=== PATIENT | male | born 1960 | race African-American/Black ===

== ENCOUNTER 2020-01-08 20:05 | Emergency (ER) | payer MEDICAID ==
[~2020-01-08] VITALS: Ht 177.8 cm; Wt 68.0 kg
[2020-01-08] MEDS ORDERED: HYDROCODONE/ACETAMINOPHEN 5/325MG TABLET PO ONE (21:15)
[2020-01-08 21:27] VITALS: BP 143/88
== END 2020-01-08 21:35 | disposition home or self-care (01) ==
LOC: ER 20:05
DX: M79.605 Pain in left leg (principal); G89.11 Acute pain due to trauma
CPT/HCPCS: 99283

== ENCOUNTER 2021-02-09 15:31 | Emergency (ER) | payer MEDICAID ==
[~2021-02-09] VITALS: Ht 177.8 cm; Wt 85.0 kg
[2021-02-09 15:33] VITALS: BP 148/99
[2021-02-09] MEDS ORDERED: AMOX-424 MT (16:08)
[2021-02-09] MEDS ORDERED: GUAI600T26 MT (16:08)
[2021-02-09] MEDS ORDERED: HYDR-4001 MT (16:08)
[2021-02-09] MEDS ORDERED: OMEP20CA14 MT (16:08)
[2021-02-09] MEDS ORDERED: HYDROCODONE/ACETAMINOPHEN 5/325MG TABLET PO ONE (16:15)
[2021-02-09] MEDS ORDERED: AMOXICILLIN/POTASSIUM CLAVULANATE 875/125MG TAB PO ONE (16:15)
[2021-02-09] MEDS ORDERED: OMEPRAZOLE 20MG CAPSULE EXTENDED RELEASE PO ONE (16:15)
== END 2021-02-09 16:31 | disposition home or self-care (01) ==
LOC: ER 15:31
DX: K05.6 Periodontal disease, unspecified (principal); K02.9 Dental caries, unspecified; F41.9 Anxiety disorder, unspecified; F32.9 Major depressive disorder, single episode, unspecified; K21.9 Gastro-esophageal reflux disease without esophagitis; E78.00 Pure hypercholesterolemia, unspecified; I10 Essential (primary) hypertension; Z79.899 Other long term (current) drug therapy
CPT/HCPCS: 99284

== ENCOUNTER 2021-03-02 04:28 | Inpatient (IN) | payer MEDICAID ==
[~2021-03-02] VITALS: Ht 180.3 cm; Wt 104.3 kg
[~2021-03-02 04:28] MED LIST: AMOX-424 MT; GUAI600T26 MT; HYDR-4001 MT; OMEP20CA14 MT
[2021-03-02] MEDS ORDERED: IBUPROFEN 600MG TABLET PO ONE (05:45)
[2021-03-02 06:42] LABS: CHLORIDE 109 mEq/L (98-107)
[2021-03-02 06:46] LABS: EOSINOPHILS % 1.1 % (0.0-5.0); HEMATOCRIT. 39.8 % (42.0-52.0); HEMOGLOBIN. 13.5 g/dL (14.0-18.0); LYMPHOCYTES % 21.5 % (20.0-50.0); MEAN CORPUSCULAR HEMOGLOBIN 30.2 pg (28.0-32.0); MEAN CORPUSCULAR VOLUME 89.3 fL (80.0-94.0); MEAN PLATELET VOLUME 8.5 fl (7.4-10.4); MONOCYTES % 7.6 % (2.0-8.0); NEUTROPHILS % 68.8 % (40.0-76.0); PLATELET 335 x1000/uL (130-400); RED BLOOD CELL COUNT 4.46 mill/uL (4.7-6.1); RED CELL DISTRIBUTION WIDTH 12.3 % (11.6-14.6)
[2021-03-02] MEDS ORDERED: CEFTRIAXONE 1 G PREMIX 50 ML IV ONE (14:00)
[2021-03-02] MEDS ORDERED: AZITHROMYCIN 500MG/250ML 250 ML IV ONE (14:00)
[2021-03-02] MEDS ORDERED: IPRATROPIUM/ALBUTEROL 0.5-3(2.5)MG/3ML NEB NEB PRN (15:00)
[2021-03-02] MEDS ORDERED: MAGNESIUM/ALUMINUM HYDROXIDE/SIMETHICONE 30ML UDC PO PRN (15:00)
[2021-03-02] MEDS ORDERED: NITROGLYCERIN 0.4MG TABLET SL SL PRN (15:00)
[2021-03-02] MEDS ORDERED: ZOLPIDEM TARTRATE 5MG TABLET PO PRN (15:00)
[2021-03-02] MEDS ORDERED: ONDANSETRON HCL 4MG/2ML INJ IV PRN (15:00)
[2021-03-02] MEDS ORDERED: CLONIDINE 0.1MG TABLET PO PRN (15:00)
[2021-03-02] MEDS ORDERED: GUAIFENESIN 200MG/10ML SUGAR FREE UDC PO PRN (15:00)
[2021-03-02] MEDS ORDERED: DOCUSATE SODIUM 100MG CAPSULE PO PRN (15:00)
[2021-03-02] MEDS ORDERED: ACETAMINOPHEN 325MG TABLET PO PRN ×2 (15:00)
[2021-03-02 15:30] LABS: ETHANOL BLOOD < 10 mg/dL
[2021-03-02 15:31] LABS: TOTAL IRON BINDING CAPACITY 272 ug/dL (250-450)
[2021-03-02 15:41] LABS: FOLIC ACID (FOLATE) SERUM 8.7 ng/mL (>5.38)
[2021-03-02] MEDS: KETOROLAC 15MG/ML VIAL IV PRN (17:47)
[2021-03-02] MEDS: DILTIAZEM HCL 60MG TABLET PO SCH (18:00)
[2021-03-02] MEDS: ALBUTEROL 6.7GM HFA INHALER ORI PRN (21:00)
[2021-03-02] MEDS ORDERED: ENOXAPARIN 40MG/0.4ML SYR SUBCUT SCH (21:00)
[2021-03-02 22:00] VITALS: BP 136/99
[2021-03-02] MEDS: FUROSEMIDE 40MG/4ML VIAL IVP SCH (22:24)
[2021-03-02] MEDS: SPIRONOLACTONE 25MG TABLET PO SCH (22:24)
[2021-03-02] MEDS: FAMOTIDINE 20MG TABLET PO SCH (22:24)
[2021-03-02 22:25] VITALS: BP 136/99
[2021-03-02] MEDS ORDERED: LISI10TA26 PO (23:19)
[2021-03-02 23:23] LABS: *AMPHETAMINES SCREEN URINE NEGATIVE (NEGATIVE); *BARBITURATES SCREEN URINE NEGATIVE (NEGATIVE); *COCAINE SCREEN URINE NEGATIVE (NEGATIVE); CANNABINOID URINE SCREEN NEGATIVE (NEGATIVE); METHADONE URINE SCREEN NEGATIVE (NEGATIVE); OPIATES URINE SCREEN NEGATIVE (NEGATIVE); PHENCYCLIDINE URINE SCREEN NEGATIVE (NEGATIVE)
[2021-03-02 23:24] LABS: *BENZODIAZEPINES SCREEN URINE NEGATIVE (NEGATIVE)
[2021-03-02 23:32] LABS: CREATINE KINASE MB FRACTION 1.3 ng/mL (0.5-3.6)
[2021-03-03] VITALS: BP 121/91
[2021-03-03] MEDS: DILTIAZEM HCL 60MG TABLET PO SCH ×5 (01:59→23:35)
[2021-03-03] MEDS: KETOROLAC 15MG/ML VIAL IV PRN ×4 (02:09→23:00)
[2021-03-03 04:00] VITALS: BP 129/68
[2021-03-03 07:38] LABS: CHLORIDE 108 mEq/L (98-107)
[2021-03-03 07:40] LABS: BASOPHILS % 0.7 % (0.0-2.0); EOSINOPHILS % 1.1 % (0.0-5.0); HEMATOCRIT. 38.3 % (42.0-52.0); HEMOGLOBIN. 13.1 g/dL (14.0-18.0); MEAN CORPUSCULAR HEMOGLOBIN 30.8 pg (28.0-32.0); MEAN CORPUSCULAR VOLUME 89.9 fL (80.0-94.0); MEAN PLATELET VOLUME 9.2 fl (7.4-10.4); MONOCYTES % 7.5 % (2.0-8.0); NEUTROPHILS % 69.7 % (40.0-76.0); PLATELET 348 x1000/uL (130-400); RED BLOOD CELL COUNT 4.26 mill/uL (4.7-6.1); RED CELL DISTRIBUTION WIDTH 12.2 % (11.6-14.6)
[2021-03-03 07:45] LABS: CREATINE KINASE 98 IU/L (39-308)
[2021-03-03 07:49] LABS: CREATINE KINASE MB FRACTION 1.4 ng/mL (0.5-3.6)
[2021-03-03 08:00] VITALS: BP 133/100
[2021-03-03] MEDS: FUROSEMIDE 40MG/4ML VIAL IVP SCH ×2 (08:33→20:24)
[2021-03-03] MEDS: SPIRONOLACTONE 25MG TABLET PO SCH ×2 (08:33→20:25)
[2021-03-03] MEDS: ASPIRIN 325MG EC TABLET PO SCH (08:33)
[2021-03-03] MEDS: FAMOTIDINE 20MG TABLET PO SCH ×2 (08:33→20:25)
[2021-03-03 12:00] VITALS: BP 128/96
[2021-03-03 16:00] VITALS: BP 125/94
[2021-03-03 20:00] VITALS: BP 116/83
[2021-03-03] MEDS: ENOXAPARIN 30MG/0.3ML SYR SUBCUT SCH (20:26)
[2021-03-04] VITALS: BP 128/87
[2021-03-04 04:00] VITALS: BP 120/88
[2021-03-04] MEDS: DILTIAZEM HCL 60MG TABLET PO SCH ×3 (05:25→18:21)
[2021-03-04] MEDS: KETOROLAC 15MG/ML VIAL IV PRN ×3 (05:53→18:22)
[2021-03-04 08:00] VITALS: BP 126/79
[2021-03-04] MEDS: FUROSEMIDE 40MG/4ML VIAL IVP SCH ×2 (08:43→21:09)
[2021-03-04] MEDS: ENOXAPARIN 30MG/0.3ML SYR SUBCUT SCH ×2 (08:44→21:09)
[2021-03-04] MEDS: FAMOTIDINE 20MG TABLET PO SCH ×2 (08:44→21:08)
[2021-03-04] MEDS: ASPIRIN 325MG EC TABLET PO SCH (08:44)
[2021-03-04] MEDS: SPIRONOLACTONE 25MG TABLET PO SCH ×2 (08:47→21:09)
[2021-03-04 12:00] VITALS: BP 128/77
[2021-03-04 16:00] VITALS: BP 122/86
[2021-03-04] MEDS: ACETAMINOPHEN 325MG TABLET PO PRN (16:42)
[2021-03-04 20:00] VITALS: BP 161/74
[2021-03-05] VITALS: BP 123/83
[2021-03-05] MEDS: KETOROLAC 15MG/ML VIAL IV PRN ×4 (00:07→23:29)
[2021-03-05] MEDS: DILTIAZEM HCL 60MG TABLET PO SCH ×5 (00:07→23:30)
[2021-03-05 04:00] VITALS: BP 125/82
[2021-03-05 08:00] VITALS: BP 127/45
[2021-03-05] MEDS: SPIRONOLACTONE 25MG TABLET PO SCH ×2 (08:42→20:17)
[2021-03-05] MEDS: FUROSEMIDE 40MG/4ML VIAL IVP SCH ×2 (08:42→20:17)
[2021-03-05] MEDS: ASPIRIN 325MG EC TABLET PO SCH (08:42)
[2021-03-05] MEDS: FAMOTIDINE 20MG TABLET PO SCH ×2 (08:42→20:17)
[2021-03-05] MEDS: ENOXAPARIN 30MG/0.3ML SYR SUBCUT SCH ×2 (08:44→20:17)
[2021-03-05 12:01] VITALS: BP 118/93
[2021-03-05 16:00] VITALS: BP 111/76
[2021-03-05 20:00] VITALS: BP 130/80
[2021-03-05] MEDS: ACETAMINOPHEN 325MG TABLET PO PRN (20:17)
[2021-03-06] VITALS: BP 129/80
[2021-03-06 04:00] VITALS: BP 116/77
[2021-03-06] MEDS: DILTIAZEM HCL 60MG TABLET PO SCH (05:23)
[2021-03-06] MEDS: KETOROLAC 15MG/ML VIAL IV PRN (05:23)
[2021-03-06 08:00] VITALS: BP 126/88
[2021-03-06] MEDS: ENOXAPARIN 30MG/0.3ML SYR SUBCUT SCH (09:00)
[2021-03-06] MEDS: FUROSEMIDE 40MG/4ML VIAL IVP SCH (09:00)
[2021-03-06] MEDS: FAMOTIDINE 20MG TABLET PO SCH (09:38)
[2021-03-06] MEDS: SPIRONOLACTONE 25MG TABLET PO SCH (09:38)
[2021-03-06] MEDS: ASPIRIN 325MG EC TABLET PO SCH (09:38)
[2021-03-06 09:42] VITALS: BP 126/88
== END 2021-03-06 10:15 | disposition home or self-care (01) | DRG 194 ==
LOC: ER 05:03 → 8WST 11:04 → ENRESERV 20:30
PROVIDERS: ADMIT Internal Medicine; ATTEND Internal Medicine
DX: I11.0 Hypertensive heart disease with heart failure (principal); E44.0 Moderate protein-calorie malnutrition; D63.8 Anemia in other chronic diseases classified elsewhere; I47.1 Supraventricular tachycardia; Z20.822 Contact with and (suspected) exposure to COVID-19; E78.00 Pure hypercholesterolemia, unspecified; K21.9 Gastro-esophageal reflux disease without esophagitis; F41.9 Anxiety disorder, unspecified; I50.40 Unspecified combined systolic (congestive) and diastolic (congestive) heart failure; Z68.32 Body mass index [BMI] 32.0-32.9, adult; Z79.899 Other long term (current) drug therapy
CPT/HCPCS: 36415; 71045; 80053; 80305; 80320; 82550; 82553; 82607; 82746; 83540; 83550; 83735; 83880; 84100; 84145; 84443; 84484; 85025; 87426; 93005; 93306; 93970; 94640; 99285; J0456; J0696; J1650; J1885; J1940; G0480

== ENCOUNTER 2021-12-08 03:01 | Emergency (ER) | payer MEDICAID ==
[~2021-12-08] VITALS: Ht 180.3 cm; Wt 83.0 kg
[~2021-12-08 03:01] MED LIST changes: +AMOX-494 MT; +CARV3.1242 MT; +FURO-151 MT; +LISI10TA26 PO; +TOPUD MT
[2021-12-08] MEDS ORDERED: IPRATROPIUM BROMIDE (0.02%) 0.5MG/2.5ML NEB HHN STA (03:34)
[2021-12-08] MEDS ORDERED: ALBUTEROL (0.083%) 2.5MG/3ML NEB HHN STA (03:34)
[2021-12-08] MEDS ORDERED: BENZONATATE 200MG CAPSULE PO ONE (03:45)
[2021-12-08 04:04] LABS: BASOPHILS % 0.3 % (0.0-2.0); EOSINOPHILS % 2.2 % (0.0-5.0); HEMATOCRIT. 38.9 % (42.0-52.0); HEMOGLOBIN. 13.1 g/dL (14.0-18.0); LYMPHOCYTES % 27.3 % (20.0-50.0); MEAN CORPUSCULAR HEMOGLOBIN 30.9 pg (28.0-32.0); MEAN CORPUSCULAR VOLUME 92.3 fL (80.0-94.0); MEAN PLATELET VOLUME 9.3 fl (7.4-10.4); MONOCYTES % 7.6 % (2.0-8.0); NEUTROPHILS % 62.6 % (40.0-76.0); PLATELET 143 x1000/uL (130-400); RED BLOOD CELL COUNT 4.22 mill/uL (4.7-6.1); RED CELL DISTRIBUTION WIDTH 13.5 % (11.6-14.6)
[2021-12-08 05:15] LABS: CHLORIDE 106 mEq/L (98-107)
[2021-12-08] MEDS ORDERED: ENALAPRIL 2.5MG/2ML VIAL 2ML IV ONE (06:00)
[2021-12-08] MEDS ORDERED: FUROSEMIDE 40MG/4ML VIAL IVP ONE (06:00)
[2021-12-08 07:42] VITALS: BP 134/93
[2021-12-08] MEDS ORDERED: LISI10TA26 PO (07:54)
[2021-12-08] MEDS ORDERED: FURO40TA5 PO (07:54)
[2021-12-08] MEDS ORDERED: CARV3.1242 PO (07:54)
== END 2021-12-08 08:07 | disposition home or self-care (01) ==
LOC: ER 03:10 → EDBEDREQTM 06:52 → EDBEDREQ 06:52 → CANBEDREQ 08:06 → ER 08:07
DX: I11.0 Hypertensive heart disease with heart failure (principal); I50.9 Heart failure, unspecified; R94.31 Abnormal electrocardiogram [ECG] [EKG]; Z20.822 Contact with and (suspected) exposure to COVID-19
CPT/HCPCS: 36415; 71045; 80053; 83605; 83880; 84484; 85025; 87426; 93005; 94640; 96374; 96375; 99285; C9803; J1940; J3490; Z7610

== ENCOUNTER 2024-02-17 01:53 | Emergency (ER) | payer MEDICAID ==
[~2024-02-17] VITALS: Ht 180.3 cm; Wt 99.0 kg
[~2024-02-17 01:53] MED LIST changes: +CARV3.1242 PO; +FURO40TA5 PO
[2024-02-17 02:03] VITALS: BP 139/94; PULSE 90; RESP 18; TEMP 98.5; O2SAT 97
[2024-02-17 03:29] LABS: CHLORIDE 108 mEq/L (98-107); POTASSIUM 3.2 mEq/L (3.5-5.1); SODIUM 142 mEq/L (136-145)
[2024-02-17 03:30] LABS: CALCIUM 8.8 mg/dL (8.7-10.4); CARBON DIOXIDE 27 mEq/L (21-32)
[2024-02-17] MEDS: ASPIRIN 81MG TABLET PO ONE (03:34)
[2024-02-17] MEDS: FUROSEMIDE 40MG/4ML VIAL IV ONE (03:34)
[2024-02-17 03:35] LABS: BASOPHILS % 1.3 % (0.0-2.0); CREATININE 1.2 mg/dL (0.6-1.3); EOSINOPHILS % 3.1 % (0.0-5.0); GLUCOSE 110 mg/dL (70-105); HEMATOCRIT. 36.6 % (42.0-52.0); HEMOGLOBIN. 12.2 g/dL (14.0-18.0); LYMPHOCYTES % 26.8 % (20.0-50.0); MEAN CORPUSCULAR HEMOGLOBIN 32.2 pg (28.0-32.0); MEAN CORPUSCULAR HGB CONC 33.2 g/dL (31.0-37.0); MEAN PLATELET VOLUME 9.6 fl (7.4-10.4); MONOCYTES % 12.1 % (2.0-8.0); NEUTROPHILS % 56.7 % (40.0-76.0); PLATELET 100 x1000/uL (130-400); RED BLOOD CELL COUNT 3.78 mill/uL (4.7-6.1); RED CELL DISTRIBUTION WIDTH 13.3 % (11.6-14.6); UREA NITROGEN BLOOD 11 mg/dL (9-23); WHITE BLOOD COUNT 6.1 x1000/uL (4.5-11.0)
[2024-02-17] MEDS: NITROGLYCERIN 0.4MG TABLET SL SL PRN (03:35)
[2024-02-17 03:36] LABS: TROPONIN I HIGH SENSITIVITY 20 ng/L (3.0-53)
[2024-02-17] MEDS: POTASSIUM CHLORIDE 20MEQ/PACKET PO ONE (04:15)
[2024-02-17 04:40] LABS: PARTIAL THROMBOPLASTIN TIME 25.2 sec (23.4-31.0)
== END 2024-02-17 04:42 | disposition left against medical advice (07) ==
LOC: ER 03:04 → EDBEDREQ 04:08 → EDBEDREQTM 04:08 → ER 04:42
DX: I11.0 Hypertensive heart disease with heart failure (principal); I50.9 Heart failure, unspecified; E87.6 Hypokalemia; Z79.899 Other long term (current) drug therapy; Z76.0 Encounter for issue of repeat prescription
CPT/HCPCS: 80048; 83880; 85025; 85610; 85730; 84484; 36415; 71045; 93005; 96374; 99285; Z7610 ×2; J1940

== ENCOUNTER 2024-03-07 03:55 | Emergency (ER) | payer MEDICAID ==
[~2024-03-07] VITALS: Ht 180.3 cm; Wt 105.0 kg
[2024-03-07 03:57] VITALS: O2SAT 100
[2024-03-07 06:28] LABS: CHLORIDE 105 mEq/L (98-107); POTASSIUM 3.2 mEq/L (3.5-5.1); SODIUM 143 mEq/L (136-145)
[2024-03-07 06:29] LABS: CALCIUM 8.4 mg/dL (8.7-10.4); CARBON DIOXIDE 29 mEq/L (21-32)
[2024-03-07 06:34] LABS: CREATININE 1.3 mg/dL (0.6-1.3); GLUCOSE 90 mg/dL (70-105); UREA NITROGEN BLOOD 17 mg/dL (9-23)
[2024-03-07 06:35] LABS: TROPONIN I HIGH SENSITIVITY 20 ng/L (3.0-53)
[2024-03-07 06:36] LABS: BASOPHILS % 0.5 % (0.0-2.0); HEMATOCRIT. 36.2 % (42.0-52.0); LYMPHOCYTES % 11.1 % (20.0-50.0); MEAN CORPUSCULAR HEMOGLOBIN 31.6 pg (28.0-32.0); MEAN CORPUSCULAR HGB CONC 33.3 g/dL (31.0-37.0); MEAN CORPUSCULAR VOLUME 94.9 fL (80.0-94.0); MEAN PLATELET VOLUME 10.6 fl (7.4-10.4); MONOCYTES % 11.3 % (2.0-8.0); NEUTROPHILS % 77.1 % (40.0-76.0); PLATELET 82 x1000/uL (130-400); RED BLOOD CELL COUNT 3.82 mill/uL (4.7-6.1); RED CELL DISTRIBUTION WIDTH 13.1 % (11.6-14.6); WHITE BLOOD COUNT 5.3 x1000/uL (4.5-11.0)
[2024-03-07 06:49] LABS: ETHANOL BLOOD < 10 mg/dL (<10)
[2024-03-07 07:23] LABS: CLARITY URINE CLEAR (CLEAR); COLOR URINE YELLOW (YELLOW); GLUCOSE URINE NEGATIVE (NEGATIVE); KETONES URINE TRACE (NEGATIVE); LEUKOCYTE ESTERASE URINE NEGATIVE (NEGATIVE); NITRITE URINE NEGATIVE (NEGATIVE); OCCULT BLOOD URINE NEGATIVE (NEGATIVE); PH URINE 6.5 (4.5-8.0); PROTEIN URINE 1+ (NEGATIVE); SPECIFIC GRAVITY URINE 1.022 (1.005-1.030)
[2024-03-07 07:24] LABS: PARTIAL THROMBOPLASTIN TIME 26.3 sec (23.4-31.0); PROTHROMBIN TIME 11.4 sec (9.6-11.0)
[2024-03-07 07:38] LABS: BACTERIA URINE RARE; RBC URINE 0-2 /hpf (0-2); SQUAMOUS EPITHELIAL CELL URINE NONE SEEN /lpf (RARE/1+); WBC URINE 0-2 /hpf (0-2); YEAST URINE NONE SEEN
[2024-03-07] MEDS: FUROSEMIDE 40MG/4ML VIAL IVP NR (08:03)
[2024-03-07 08:04] LABS: *AMPHETAMINES SCREEN URINE NEGATIVE (NEGATIVE); *BARBITURATES SCREEN URINE NEGATIVE (NEGATIVE); *BENZODIAZEPINES SCREEN URINE NEGATIVE (NEGATIVE); *COCAINE SCREEN URINE PRESUMPTIVE POSITIVE (NEGATIVE); METHADONE URINE SCREEN NEGATIVE (NEGATIVE); OPIATES URINE SCREEN NEGATIVE (NEGATIVE); PHENCYCLIDINE URINE SCREEN NEGATIVE (NEGATIVE)
[2024-03-07] MEDS: PANTOPRAZOLE SODIUM 40 MG/VIAL IV NR (08:04)
[2024-03-07] MEDS: POTASSIUM CHLORIDE 20MEQ/PACKET PO NR (08:04)
[2024-03-07 08:05] LABS: CANNABINOID URINE SCREEN NEGATIVE (NEGATIVE); ECSTASY MDMA SCREEN URINE NEGATIVE (NEGATIVE)
[2024-03-07 08:20] VITALS: TEMP 36.61404; O2SAT 96
[2024-03-07 08:21] LABS: ALANINE AMINOTRANSFERASE 75 IU/L (10-49); ALBUMIN 3.9 g/dL (3.2-4.8); ASPARTATE AMINOTRANSFERASE 108 IU/L (<34); BILIRUBIN DIRECT 0.2 mg/dL (<=3.0); BILIRUBIN TOTAL 0.5 mg/dL (0.1-1.0); PROTEIN TOTAL 6.6 g/dL (6.0-8.3)
[2024-03-07 16:21] VITALS: BP 112/75; PULSE 88; RESP 18; TEMP 97.9
== END 2024-03-07 17:00 | disposition admitted as inpatient to this hospital (09) ==
LOC: ER 03:55 → EDBEDREQ 13:37 → CANBEDREQ 16:39 → ER 17:00
DX: I11.0 Hypertensive heart disease with heart failure (principal); I50.9 Heart failure, unspecified; F14.10 Cocaine abuse, uncomplicated; K21.9 Gastro-esophageal reflux disease without esophagitis; F17.200 Nicotine dependence, unspecified, uncomplicated; F12.10 Cannabis abuse, uncomplicated; E87.6 Hypokalemia; Z79.899 Other long term (current) drug therapy
CPT/HCPCS: 80076; 80305; 80048; 81003; 80320; 83880; 83690; 85025; 85610; 85730; 84484; 36415; 71045; 93005; 96365; 96366; 96375; 99291; J1940; J2470; A4663; Z7610 ×3; A4606; G0480

== ENCOUNTER 2024-03-07 22:57 | Emergency (ER) | payer MEDICAID ==
[~2024-03-07] VITALS: Ht 182.9 cm; Wt 91.0 kg
[2024-03-07 08:20] VITALS: TEMP 36.61404
[2024-03-07 23:00] VITALS: BP 127/82; PULSE 90; RESP 20; TEMP 98.4; O2SAT 97
[2024-03-08 00:18] LABS: BASOPHILS % 0.4 % (0.0-2.0); EOSINOPHILS % 0.3 % (0.0-5.0); HEMATOCRIT. 36.1 % (42.0-52.0); LYMPHOCYTES % 23.7 % (20.0-50.0); MEAN CORPUSCULAR HEMOGLOBIN 31.5 pg (28.0-32.0); MEAN CORPUSCULAR HGB CONC 33.3 g/dL (31.0-37.0); MEAN CORPUSCULAR VOLUME 94.6 fL (80.0-94.0); MEAN PLATELET VOLUME 10.8 fl (7.4-10.4); MONOCYTES % 11.9 % (2.0-8.0); NEUTROPHILS % 63.7 % (40.0-76.0); PLATELET 89 x1000/uL (130-400); RED BLOOD CELL COUNT 3.82 mill/uL (4.7-6.1); RED CELL DISTRIBUTION WIDTH 13.1 % (11.6-14.6); WHITE BLOOD COUNT 4.2 x1000/uL (4.5-11.0)
[2024-03-08 00:26] LABS: CHLORIDE 103 mEq/L (98-107); POTASSIUM 3.3 mEq/L (3.5-5.1); SODIUM 139 mEq/L (136-145)
[2024-03-08 00:27] LABS: CALCIUM 8.2 mg/dL (8.7-10.4); CARBON DIOXIDE 31 mEq/L (21-32)
[2024-03-08 00:32] LABS: CREATININE 1.1 mg/dL (0.6-1.3); GLUCOSE 92 mg/dL (70-105); UREA NITROGEN BLOOD 14 mg/dL (9-23)
[2024-03-08 00:33] LABS: TROPONIN I HIGH SENSITIVITY 17 ng/L (3.0-53)
[2024-03-08] MEDS: POTASSIUM CHLORIDE 20MEQ TABLET SR PO NR (01:00)
[2024-03-08] MEDS: FUROSEMIDE 40MG TABLET PO NR (01:01)
[2024-03-08] MEDS: FUROSEMIDE 40MG TABLET PO ONE (01:01)
[2024-03-08] MEDS: FUROSEMIDE 20MG/2ML VIAL IVP ONE (03:33)
[2024-03-08] MEDS: ALPRAZOLAM 0.25 MG TABLET PO ONE (03:33)
[2024-03-08] MEDS: FUROSEMIDE 40MG/4ML VIAL IVP NR (03:33)
[2024-03-08] MEDS ORDERED: MAGNESIUM/ALUMINUM HYDROXIDE/SIMETHICONE 30ML UDC PO PRN (04:45)
[2024-03-08] MEDS ORDERED: GUAIFENESIN 200MG/10ML SUGAR FREE UDC PO PRN (04:45)
[2024-03-08] MEDS ORDERED: ONDANSETRON HCL 4MG/2ML INJ IV PRN (04:45)
[2024-03-08] MEDS ORDERED: IPRATROPIUM/ALBUTEROL 0.5-3(2.5)MG/3ML NEB HHN PRN (04:45)
[2024-03-08] MEDS ORDERED: CLONIDINE 0.1MG TABLET PO PRN (04:45)
[2024-03-08] MEDS ORDERED: DOCUSATE SODIUM 100MG CAPSULE PO PRN (04:45)
[2024-03-08] MEDS ORDERED: ACETAMINOPHEN 325MG TABLET PO PRN ×2 (04:45)
[2024-03-08] MEDS: POTASSIUM CHLORIDE 20MEQ/PACKET PO NR (05:39)
[2024-03-08] MEDS ORDERED: POTASSIUM CHLORIDE 20 MEQ in DEXT 5% WATER 90 ML IV ONE (07:30)
[2024-03-08] MEDS ORDERED: KCL 20MEQ/100ML PREMIX 100 ML IV NR (07:45)
[2024-03-08] MEDS ORDERED: PANTOPRAZOLE SODIUM 40 MG/VIAL IV SCH (09:00)
[2024-03-08] MEDS ORDERED: ENOXAPARIN 40MG/0.4ML SYR SUBCUT SCH (09:00)
== END 2024-03-08 07:56 | disposition left against medical advice (07) ==
LOC: ER 22:57
DX: I11.0 Hypertensive heart disease with heart failure (principal); I50.9 Heart failure, unspecified; Z91.148 Patient's other noncompliance with medication regimen for other reason; E87.6 Hypokalemia; D53.1 Other megaloblastic anemias, not elsewhere classified; F17.210 Nicotine dependence, cigarettes, uncomplicated; K21.9 Gastro-esophageal reflux disease without esophagitis; Z79.899 Other long term (current) drug therapy; Z98.890 Other specified postprocedural states
CPT/HCPCS: 80048; 83880; 85025; 84484; 36415; 71045; 93005; 99285; 96374; J1940 ×2; Z7610 ×2

== ENCOUNTER 2024-03-10 02:37 | Emergency (ER) | payer MEDICAID ==
[~2024-03-10] VITALS: Ht 172.7 cm; Wt 76.0 kg
[2024-03-10 03:02] VITALS: BP 158/90; PULSE 84; RESP 20; TEMP 98.1; O2SAT 98
[2024-03-10] MEDS ORDERED: FUROSEMIDE 40MG/4ML VIAL IV ONE (03:15)
[2024-03-10 04:49] LABS: BASOPHILS % 0.8 % (0.0-2.0); EOSINOPHILS % 3.7 % (0.0-5.0); HEMOGLOBIN. 11.4 g/dL (14.0-18.0); LYMPHOCYTES % 20.1 % (20.0-50.0); MEAN CORPUSCULAR HEMOGLOBIN 31.5 pg (28.0-32.0); MEAN CORPUSCULAR HGB CONC 32.4 g/dL (31.0-37.0); MEAN CORPUSCULAR VOLUME 97.3 fL (80.0-94.0); MONOCYTES % 8.9 % (2.0-8.0); NEUTROPHILS % 66.5 % (40.0-76.0); RED CELL DISTRIBUTION WIDTH 13.5 % (11.6-14.6); WHITE BLOOD COUNT 6.4 x1000/uL (4.5-11.0)
[2024-03-10 04:56] LABS: CHLORIDE 109 mEq/L (98-107); POTASSIUM 4.3 mEq/L (3.5-5.1); SODIUM 142 mEq/L (136-145)
[2024-03-10 04:57] LABS: CARBON DIOXIDE 24 mEq/L (21-32)
[2024-03-10 04:58] LABS: CALCIUM 8.6 mg/dL (8.7-10.4)
[2024-03-10 05:02] LABS: CREATININE 1.2 mg/dL (0.6-1.3)
[2024-03-10 05:03] LABS: GLUCOSE 103 mg/dL (70-105); UREA NITROGEN BLOOD 18 mg/dL (9-23)
[2024-03-10 05:05] LABS: TROPONIN I HIGH SENSITIVITY 11 ng/L (3.0-53)
[2024-03-10] MEDS: FUROSEMIDE 40MG TABLET PO ONE (05:20)
[2024-03-10 05:27] LABS: DIFFERENTIAL COMMENT 1
[2024-03-10 05:30] LABS: PARTIAL THROMBOPLASTIN TIME 21.4 sec (23.4-31.0); PROTHROMBIN TIME 10.7 sec (9.6-11.0)
[2024-03-10] MEDS ORDERED: ACETAMINOPHEN 325MG TABLET PO PRN ×2 (05:30)
[2024-03-10] MEDS ORDERED: MAGNESIUM/ALUMINUM HYDROXIDE/SIMETHICONE 30ML UDC PO PRN (05:30)
[2024-03-10] MEDS ORDERED: IPRATROPIUM/ALBUTEROL 0.5-3(2.5)MG/3ML NEB HHN PRN (05:30)
[2024-03-10] MEDS ORDERED: CLONIDINE 0.1MG TABLET PO PRN (05:30)
[2024-03-10] MEDS ORDERED: DOCUSATE SODIUM 100MG CAPSULE PO PRN (05:30)
[2024-03-10] MEDS ORDERED: GUAIFENESIN 200MG/10ML SUGAR FREE UDC PO PRN (05:30)
[2024-03-10 07:21] LABS: PLATELET 128 x1000/uL (130-400)
[2024-03-10] MEDS ORDERED: PANTOPRAZOLE SODIUM 40 MG/VIAL IV SCH (09:00)
== END 2024-03-10 05:41 | disposition left against medical advice (07) ==
LOC: ER 02:37 → EDBEDREQTM 05:41 → EDBEDREQ 05:41 → CANBEDREQ 06:45
DX: I50.9 Heart failure, unspecified (principal); Z91.148 Patient's other noncompliance with medication regimen for other reason; Z79.899 Other long term (current) drug therapy
CPT/HCPCS: 80048; 83880; 85025; 85610; 85730; 84484; 36415; 71045; 93005; 99291; J1940; A4663; Z7610 ×3; A4606

== ENCOUNTER 2024-09-01 14:30 | Inpatient (IN) | payer MEDICAID ==
[~2024-09-01] VITALS: Ht 175.3 cm; Wt 104.8 kg
[2024-09-01 14:32] VITALS: O2SAT 98
[2024-09-01 15:42] LABS: BASOPHILS % 1.6 % (0.0-2.0); EOSINOPHILS % 2.7 % (0.0-5.0); HEMATOCRIT. 41.2 % (42.0-52.0); HEMOGLOBIN. 13.8 g/dL (14.0-18.0); LYMPHOCYTES % 26.2 % (20.0-50.0); MEAN PLATELET VOLUME 9.4 fl (7.4-10.4); MONOCYTES % 10.0 % (2.0-8.0); NEUTROPHILS % 59.5 % (40.0-76.0); PLATELET 123 x1000/uL (130-400); RED BLOOD CELL COUNT 4.23 mill/uL (4.7-6.1); RED CELL DISTRIBUTION WIDTH 13.9 % (11.6-14.6)
[2024-09-01 16:01] LABS: CREATININE 1.3 mg/dL (0.6-1.3); TROPONIN I HIGH SENSITIVITY 22 ng/L (3.0-53)
[2024-09-01 16:02] LABS: UREA NITROGEN BLOOD 10 mg/dL (9-23)
[2024-09-01] MEDS: CEFTRIAXONE 1GM/50ML 50 ML IV ONE (17:29)
[2024-09-01 19:30] VITALS: BP 150/72; PULSE 81; RESP 19; TEMP 36.696
[2024-09-01 20:00] VITALS: BP 137/96; PULSE 102; RESP 16; TEMP 36.3; O2SAT 99
[2024-09-01] MEDS: LISINOPRIL 20MG TABLET PO SCH (20:45)
[2024-09-01] MEDS ORDERED: CEFAZOLIN 1000MG PREMIX 50 ML IV SCH (20:45)
[2024-09-01] MEDS: HYDROCODONE/ACETAMINOPHEN 5/325MG TABLET PO PRN (21:24)
[2024-09-01] MEDS: FUROSEMIDE 40MG TABLET PO SCH (21:24)
[2024-09-01] MEDS: CARVEDILOL 3.125 MG TABLET PO SCH (21:25)
[2024-09-01] MEDS: CEFAZOLIN 1000MG PREMIX 50 ML IV SCH (22:55)
[2024-09-01] MEDS: MORPHINE SULFATE 2 MG/ML INJ (NOT FOR IM USE) IV NR (22:55)
[2024-09-02] VITALS: BP 98/69; PULSE 90; RESP 18; TEMP 36.1; O2SAT 98
[2024-09-02] MEDS: HYDROCODONE/ACETAMINOPHEN 10/325MG TABLET PO PRN (03:43)
[2024-09-02 04:00] VITALS: BP 134/104; PULSE 102; RESP 18; TEMP 36.2; O2SAT 96
[2024-09-02 08:00] VITALS: BP 118/71; PULSE 92; RESP 20; TEMP 36.3; O2SAT 100
[2024-09-02 08:58] LABS: BASOPHILS % 1.0 % (0.0-2.0); EOSINOPHILS % 3.6 % (0.0-5.0); HEMATOCRIT. 41.2 % (42.0-52.0); HEMOGLOBIN. 13.9 g/dL (14.0-18.0); LYMPHOCYTES % 29.1 % (20.0-50.0); MEAN PLATELET VOLUME 9.9 fl (7.4-10.4); MONOCYTES % 9.5 % (2.0-8.0); NEUTROPHILS % 56.8 % (40.0-76.0); PLATELET 126 x1000/uL (130-400); RED BLOOD CELL COUNT 4.24 mill/uL (4.7-6.1); RED CELL DISTRIBUTION WIDTH 14.2 % (11.6-14.6)
[2024-09-02 09:09] LABS: CREATININE 1.3 mg/dL (0.6-1.3); UREA NITROGEN BLOOD 14 mg/dL (9-23)
[2024-09-02] MEDS: PANTOPRAZOLE 40MG DR TABLET PO SCH (09:14)
[2024-09-02] MEDS: ENOXAPARIN 30MG/0.3ML SYR SUBCUT SCH (09:15)
[2024-09-02] MEDS ORDERED: NALOXONE HCL 0.4MG/ML VIAL IV PRN (11:00)
[2024-09-02 12:00] VITALS: BP 120/78; PULSE 97; RESP 20; TEMP 36.2; O2SAT 100
[2024-09-02] MEDS: POTASSIUM CHLORIDE 20MEQ TABLET SR PO SCH (12:56)
[2024-09-02] MEDS: METOLAZONE 2.5MG TABLET PO NR (12:57)
[2024-09-02] MEDS: PREDNISONE 20MG TABLET PO SCH (12:57)
[2024-09-02 16:00] VITALS: BP 130/77; PULSE 89; RESP 20; TEMP 36.2; O2SAT 98
[2024-09-03] MEDS ORDERED: SACUBITRIL/VALSARTAN 49MG/51MG TABLET PO SCH (09:00)
[2024-09-04] MEDS ORDERED: SACU1TAB7 PO (14:25)
[2024-09-04] MEDS ORDERED: ATOR40TA70 PO (14:25)
[2024-09-04] MEDS ORDERED: TRAZ-251 PO (14:25)
[2024-09-04] MEDS ORDERED: P20 PO (14:25)
[2024-09-04] MEDS ORDERED: ASPI-1406 PO (14:25)
[2024-09-04] MEDS ORDERED: OMEP20CA14 MT (14:25)
[2024-09-04] MEDS ORDERED: SERT-422 PO (14:25)
[2024-09-04] MEDS ORDERED: ATOR20TA65 MT (14:27)
[2024-09-04] MEDS ORDERED: FURO40TA5 MT (14:27)
== END 2024-09-02 19:01 | disposition left against medical advice (07) | DRG 194 ==
LOC: ER 14:30 → 7WST 16:54 → EDBEDREQTM 17:11 → EDBEDREQ 17:11 → ENRESERV 17:33
PROVIDERS: ADMIT Internal Medicine; ATTEND Internal Medicine
DX: I11.0 Hypertensive heart disease with heart failure (principal); L03.116 Cellulitis of left lower limb; E66.9 Obesity, unspecified; Z53.29 Procedure and treatment not carried out because of patient's decision for other reasons; I50.23 Acute on chronic systolic (congestive) heart failure; J44.9 Chronic obstructive pulmonary disease, unspecified; Z68.34 Body mass index [BMI] 34.0-34.9, adult
CPT/HCPCS: 36415; 71045; 80048; 83605; 83880; 84484; 84550; 85025; 93005; 93971; 99291; J0690; J0696; J1650; J2270; J7512

== ENCOUNTER 2024-10-03 02:49 | Inpatient (IN) | payer MEDICAID ==
[~2024-10-03] VITALS: Ht 180.3 cm; Wt 100.5 kg
[~2024-10-03 02:49] MED LIST changes: +ASPI-1406 PO; +ATOR20TA65 MT; +ATOR40TA70 PO; +FURO40TA5 MT; +P20 PO; +SACU1TAB7 PO; +SERT-422 PO; +TRAZ-251 PO
[2024-10-03 03:01] VITALS: O2SAT 100
[2024-10-03] MEDS: MORPHINE SULFATE 4 MG/ML INJ (FOR IV/IM USE) IV ONE (04:42)
[2024-10-03] MEDS: ONDANSETRON HCL 4MG/2ML INJ IV ONE (04:43)
[2024-10-03 04:58] LABS: BASOPHILS % 0.2 % (0.0-2.0); EOSINOPHILS % 1.8 % (0.0-5.0); HEMATOCRIT. 38.6 % (42.0-52.0); HEMOGLOBIN. 12.8 g/dL (14.0-18.0); LYMPHOCYTES % 19.0 % (20.0-50.0); MONOCYTES % 8.0 % (2.0-8.0); NEUTROPHILS % 71.0 % (40.0-76.0); RED BLOOD CELL COUNT 4.00 mill/uL (4.7-6.1); RED CELL DISTRIBUTION WIDTH 13.4 % (11.6-14.6)
[2024-10-03 05:09] LABS: CREATININE 1.2 mg/dL (0.6-1.3); UREA NITROGEN BLOOD 18 mg/dL (9-23)
[2024-10-03 05:10] LABS: TROPONIN I HIGH SENSITIVITY 17 ng/L (3.0-53)
[2024-10-03 07:18] LABS: TROPONIN I HIGH SENSITIVITY 16 ng/L (3.0-53)
[2024-10-03 08:00] VITALS: BP 112/75; PULSE 99; RESP 20; TEMP 36.7; O2SAT 100
[2024-10-03] MEDS ORDERED: ONDANSETRON HCL 4MG/2ML INJ IV PRN (09:15)
[2024-10-03] MEDS ORDERED: MAGNESIUM/ALUMINUM HYDROXIDE/SIMETHICONE 30ML UDC PO PRN (09:15)
[2024-10-03] MEDS ORDERED: POTASSIUM CHLORIDE 20MEQ TABLET SR PO PRN (09:15)
[2024-10-03] MEDS ORDERED: ACETAMINOPHEN 325MG TABLET PO PRN ×2 (09:15)
[2024-10-03] MEDS ORDERED: NALOXONE HCL 0.4MG/ML VIAL IV PRN (09:15)
[2024-10-03] MEDS ORDERED: IPRATROPIUM/ALBUTEROL 0.5-3(2.5)MG/3ML NEB HHN PRN (09:15)
[2024-10-03] MEDS ORDERED: CLONIDINE 0.1MG TABLET PO PRN (09:15)
[2024-10-03] MEDS: DOCUSATE SODIUM 100MG CAPSULE PO PRN (10:25)
[2024-10-03] MEDS: HYDROCODONE/ACETAMINOPHEN 5/325MG TABLET PO PRN (10:25)
[2024-10-03 10:37] VITALS: BP 112/75; PULSE 99; RESP 20; TEMP 36.696
[2024-10-03] MEDS ORDERED: HYDROCODONE/ACETAMINOPHEN 5/325MG TABLET PO PRN (11:15)
[2024-10-03 12:00] VITALS: BP 98/76; PULSE 102; RESP 20; TEMP 36.5; O2SAT 100
[2024-10-03] MEDS: PREDNISONE 20MG TABLET PO SCH (12:09)
[2024-10-03] MEDS: PANTOPRAZOLE 40MG DR TABLET PO SCH (12:09)
[2024-10-03] MEDS: SACUBITRIL/VALSARTAN 49MG/51MG TABLET PO SCH (12:09)
[2024-10-03] MEDS: ATORVASTATIN CALCIUM 40MG TABLET PO SCH (12:10)
[2024-10-03] MEDS: ASPIRIN 81MG EC TABLET PO SCH (12:10)
[2024-10-03] MEDS: GUAIFENESIN 600MG ER TABLET PO SCH (12:10)
[2024-10-03] MEDS: FUROSEMIDE 40MG/4ML VIAL IVP SCH (12:10)
[2024-10-03] MEDS: CARVEDILOL 3.125 MG TABLET PO SCH (12:10)
[2024-10-03] MEDS: ENOXAPARIN 40MG/0.4ML SYR SUBCUT SCH (12:12)
[2024-10-03 13:49] LABS: CLARITY URINE CLEAR (CLEAR); COLOR URINE YELLOW (YELLOW); GLUCOSE URINE NEGATIVE (NEGATIVE); KETONES URINE TRACE (NEGATIVE); LEUKOCYTE ESTERASE URINE NEGATIVE (NEGATIVE); NITRITE URINE NEGATIVE (NEGATIVE); OCCULT BLOOD URINE NEGATIVE (NEGATIVE); PH URINE 6.5 (4.5-8.0); PROTEIN URINE 1+ (NEGATIVE); SPECIFIC GRAVITY URINE 1.019 (1.005-1.030); UROBILINOGEN URINE 1.0 E.U./dL (0.2-1.0)
[2024-10-03 13:59] LABS: *AMPHETAMINES SCREEN URINE NEGATIVE (NEGATIVE); *BARBITURATES SCREEN URINE NEGATIVE (NEGATIVE); *BENZODIAZEPINES SCREEN URINE NEGATIVE (NEGATIVE); *COCAINE SCREEN URINE PRESUMPTIVE POSITIVE (NEGATIVE); CANNABINOID URINE SCREEN NEGATIVE (NEGATIVE); ECSTASY MDMA SCREEN URINE NEGATIVE (NEGATIVE); METHADONE URINE SCREEN NEGATIVE (NEGATIVE); OPIATES URINE SCREEN PRESUMPTIVE POSITIVE (NEGATIVE); PHENCYCLIDINE URINE SCREEN NEGATIVE (NEGATIVE)
[2024-10-03] MEDS: GABAPENTIN 100MG CAPSULE PO SCH (14:15)
[2024-10-03 14:52] LABS: BACTERIA URINE FEW; SQUAMOUS EPITHELIAL CELL URINE FEW /lpf (RARE/1+); WBC URINE 0-2 /hpf (0-2); YEAST URINE NONE SEEN
[2024-10-03] MEDS ORDERED: PNEUMOCOCCAL 20-VAL CONJ-DIP CRM 0.5ML IM ONE (15:15)
[2024-10-03 16:00] VITALS: BP 114/86; PULSE 95; RESP 20; TEMP 36.6; O2SAT 98
[2024-10-03 20:00] VITALS: BP 119/77; PULSE 93; RESP 18; TEMP 36.2; O2SAT 97
[2024-10-03 20:49] LABS: PLATELET 113 x1000/uL (130-400)
[2024-10-03 20:50] LABS: MEAN PLATELET VOLUME 10.0 fl (7.4-10.4)
[2024-10-03] MEDS ORDERED: FUROSEMIDE 40MG/4ML VIAL IVP SCH (21:00)
[2024-10-03] MEDS: BLOOD SUGAR DIAGNOSTIC STRIP TEST SCH (21:01)
[2024-10-04] VITALS: BP 114/83; PULSE 88; RESP 18; TEMP 36.2; O2SAT 96
[2024-10-04 04:00] VITALS: BP 121/89; PULSE 87; RESP 18; TEMP 36.2; O2SAT 98
[2024-10-04 07:10] LABS: BASOPHILS % 0.6 % (0.0-2.0); EOSINOPHILS % 1.1 % (0.0-5.0); HEMATOCRIT. 38.9 % (42.0-52.0); HEMOGLOBIN. 13.1 g/dL (14.0-18.0); LYMPHOCYTES % 23.5 % (20.0-50.0); MEAN PLATELET VOLUME 9.6 fl (7.4-10.4); MONOCYTES % 10.2 % (2.0-8.0); NEUTROPHILS % 64.6 % (40.0-76.0); PLATELET 123 x1000/uL (130-400); RED BLOOD CELL COUNT 4.04 mill/uL (4.7-6.1); RED CELL DISTRIBUTION WIDTH 13.4 % (11.6-14.6)
[2024-10-04 07:11] LABS: TROPONIN I HIGH SENSITIVITY 11 ng/L (3.0-53)
[2024-10-04 07:14] LABS: CREATININE 1.2 mg/dL (0.6-1.3); PROTEIN TOTAL 6.7 g/dL (6.0-8.3); TRIGLYCERIDE 93 mg/dL (0-150); UREA NITROGEN BLOOD 22 mg/dL (9-23)
[2024-10-04 07:15] LABS: LDL CHOLESTEROL 124 mg/dL (5-100); T4 FREE 1.19 ng/dL (0.89-1.76)
[2024-10-04 07:16] LABS: ASPARTATE AMINOTRANSFERASE 13 IU/L (<34); BILIRUBIN DIRECT 0.2 mg/dL (<=3.0); BILIRUBIN TOTAL 0.6 mg/dL (0.1-1.0); PHOSPHORUS 3.9 mg/dL (2.5-4.9)
[2024-10-04 08:00] VITALS: BP 117/78; PULSE 100; RESP 20; TEMP 36.7; O2SAT 99
[2024-10-04] MEDS: EMPAGLIFLOZIN 10MG TABLET PO SCH (09:26)
[2024-10-04] MEDS: SPIRONOLACTONE 25MG TABLET PO SCH (09:26)
[2024-10-04] MEDS: FUROSEMIDE 40MG/4ML VIAL IVP SCH (09:27)
[2024-10-04 12:00] VITALS: BP 123/77; PULSE 99; RESP 18; TEMP 36.6; O2SAT 97
[2024-10-04] MEDS ORDERED: IBUP-2029 MT (14:30)
[2024-10-04] MEDS ORDERED: DICL100G32 TP (14:31)
[2024-10-04 15:13] VITALS: BP 123/77; PULSE 99; RESP 18; TEMP 97.9
== END 2024-10-04 15:35 | disposition home or self-care (01) | DRG 194 ==
LOC: ER 03:04 → 8WST 04:55 → EDBEDREQ 05:04 → EDBEDREQTM 05:04 → ENRESERV 07:04
PROVIDERS: ADMIT Family Medicine Adult Medicine; ATTEND Family Medicine Adult Medicine
DX: I11.0 Hypertensive heart disease with heart failure (principal); J96.01 Acute respiratory failure with hypoxia; I27.20 Pulmonary hypertension, unspecified; I50.23 Acute on chronic systolic (congestive) heart failure; E11.9 Type 2 diabetes mellitus without complications; F14.10 Cocaine abuse, uncomplicated; F17.210 Nicotine dependence, cigarettes, uncomplicated; G47.33 Obstructive sleep apnea (adult) (pediatric); M79.604 Pain in right leg; F12.90 Cannabis use, unspecified, uncomplicated; M79.605 Pain in left leg; M10.9 Gout, unspecified; I08.1 Rheumatic disorders of both mitral and tricuspid valves; Z59.00 Homelessness unspecified; Z79.82 Long term (current) use of aspirin
CPT/HCPCS: 36415; 71045; 80048; 80061; 80076; 80305; 81003; 82962; 83036; 83735; 83880; 84100; 84439; 84484; 84550; 85025; 93005; 93306; 93970; 99285; A4606; J1650; J1938; J2270; J2405; J7512

== ENCOUNTER 2024-11-30 19:33 | Inpatient (IN) | payer MEDICAID ==
[~2024-11-30] VITALS: Ht 177.8 cm; Wt 89.8 kg
[~2024-11-30 19:33] MED LIST changes: -AMOX-424 MT; -AMOX-494 MT; -ATOR20TA65 MT; -CARV3.1242 MT; +DICL100G46 TP; +DOCU-422 PO; -FURO-151 MT; -FURO40TA5 MT; +GABA-1180 PO; -HYDR-4001 MT; -LISI10TA26 PO; -P20 PO
[2024-11-30 19:40] VITALS: RESP 25
[2024-11-30 19:42] VITALS: O2SAT 100
[2024-11-30] MEDS: FUROSEMIDE 40MG/4ML VIAL IV ONE (20:20)
[2024-11-30 20:24] LABS: BASOPHILS % 1.1 % (0.0-2.0); EOSINOPHILS % 4.0 % (0.0-5.0); HEMATOCRIT. 36.3 % (42.0-52.0); HEMOGLOBIN. 12.2 g/dL (14.0-18.0); LYMPHOCYTES % 33.0 % (20.0-50.0); MEAN PLATELET VOLUME 9.2 fl (7.4-10.4); MONOCYTES % 9.1 % (2.0-8.0); NEUTROPHILS % 52.8 % (40.0-76.0); PLATELET 119 x1000/uL (130-400); RED BLOOD CELL COUNT 3.83 mill/uL (4.7-6.1); RED CELL DISTRIBUTION WIDTH 13.6 % (11.6-14.6)
[2024-11-30 20:40] LABS: CREATININE 1.3 mg/dL (0.6-1.3); TROPONIN I HIGH SENSITIVITY 15 ng/L (3.0-53); UREA NITROGEN BLOOD 14 mg/dL (9-23)
[2024-11-30 20:42] LABS: ASPARTATE AMINOTRANSFERASE 17 IU/L (<34); BILIRUBIN DIRECT 0.2 mg/dL (<=3.0); BILIRUBIN TOTAL 0.6 mg/dL (0.1-1.0); PROTEIN TOTAL 6.3 g/dL (6.0-8.3)
[2024-12-01 03:44] VITALS: BP 91/58; PULSE 91; RESP 16; TEMP 37.0296
[2024-12-01] MEDS ORDERED: GABA-1180 PO (05:16)
[2024-12-01] MEDS ORDERED: FURO-151 IVP (05:17)
[2024-12-01] MEDS ORDERED: OMEP20CA14 PO (05:21)
[2024-12-01] MEDS ORDERED: SERT25TA74 PO (05:21)
[2024-12-01] MEDS ORDERED: ENOX40SY27 SQ (05:22)
[2024-12-01] MEDS ORDERED: COR3 PO (05:22)
[2024-12-01 05:54] VITALS: BP 120/79; PULSE 90; RESP 18; TEMP 36.1; O2SAT 90
[2024-12-01] MEDS ORDERED: PANTOPRAZOLE 40MG DR TABLET PO SCH (06:45)
[2024-12-01] MEDS ORDERED: FUROSEMIDE 40MG TABLET PO SCH (07:15)
[2024-12-01] MEDS ORDERED: ASPIRIN 81MG EC TABLET PO SCH (09:00)
[2024-12-01] MEDS ORDERED: SERTRALINE HCL 25MG TABLET PO SCH (09:00)
[2024-12-01] MEDS ORDERED: GABAPENTIN 300MG CAPSULE PO SCH (09:00)
[2024-12-01] MEDS ORDERED: ENOXAPARIN 40MG/0.4ML SYR SUBCUT SCH (09:00)
[2024-12-01] MEDS ORDERED: SACUBITRIL/VALSARTAN 49MG/51MG TABLET PO SCH (09:00)
[2024-12-01] MEDS ORDERED: DOCUSATE SODIUM 100MG CAPSULE PO SCH (09:00)
[2024-12-01] MEDS ORDERED: MEDICATION NOT ON FORMULARY EA (Omeprazole 20 MG) PO SCH (09:00)
[2024-12-01] MEDS ORDERED: CARVEDILOL 3.125 MG TABLET PO SCH (09:00)
[2024-12-01] MEDS ORDERED: FUROSEMIDE 100MG/10ML VIAL IVP SCH (10:15)
[2024-12-01] MEDS ORDERED: TRAZODONE HCL 50MG TABLET PO SCH (21:00)
[2024-12-01] MEDS ORDERED: MELATONIN 3MG TABLET PO SCH (21:00)
[2024-12-01] MEDS ORDERED: ATORVASTATIN CALCIUM 40MG TABLET PO SCH (21:00)
== END 2024-12-01 17:36 | disposition left against medical advice (07) | DRG 194 ==
LOC: ER 19:33 → 5WST 22:29 → EDBEDREQTM 22:32 → EDBEDREQ 22:32 → EDBEDREQSVC 22:32 → ENRESERV 22:55
PROVIDERS: ADMIT Internal Medicine; ATTEND Internal Medicine
DX: I11.0 Hypertensive heart disease with heart failure (principal); E78.00 Pure hypercholesterolemia, unspecified; I50.9 Heart failure, unspecified; Z53.29 Procedure and treatment not carried out because of patient's decision for other reasons; J44.89 Other specified chronic obstructive pulmonary disease; F32.A Depression, unspecified; F41.9 Anxiety disorder, unspecified; I25.2 Old myocardial infarction; Z79.899 Other long term (current) drug therapy
CPT/HCPCS: 36415; 71045; 80048; 80076; 83735; 83880; 84484; 85025; 93005; 94070; 94660; 96374; 99291; J1938

== ENCOUNTER 2024-12-10 23:07 | Emergency (ER) | payer MEDICAID ==
[~2024-12-10] VITALS: Ht 180.3 cm; Wt 99.0 kg
[~2024-12-10 23:07] MED LIST changes: +COR3 PO; +ENOX40SY27 SQ; +FURO-151 IVP; +OMEP20CA14 PO; +SERT25TA74 PO
[2024-12-10 23:08] VITALS: O2SAT 97
[2024-12-11] MEDS: FUROSEMIDE 40MG/4ML VIAL IV ONE
[2024-12-11 00:45] LABS: BASOPHILS % 1.6 % (0.0-2.0); EOSINOPHILS % 3.3 % (0.0-5.0); HEMATOCRIT. 36.9 % (42.0-52.0); HEMOGLOBIN. 12.1 g/dL (14.0-18.0); LYMPHOCYTES % 27.7 % (20.0-50.0); MEAN PLATELET VOLUME 9.2 fl (7.4-10.4); MONOCYTES % 6.5 % (2.0-8.0); NEUTROPHILS % 60.9 % (40.0-76.0); PLATELET 115 x1000/uL (130-400); RED BLOOD CELL COUNT 3.90 mill/uL (4.7-6.1); RED CELL DISTRIBUTION WIDTH 14.0 % (11.6-14.6)
[2024-12-11 01:01] LABS: CREATININE 1.1 mg/dL (0.6-1.3); UREA NITROGEN BLOOD 10 mg/dL (9-23)
[2024-12-11 01:03] LABS: TROPONIN I HIGH SENSITIVITY 12 ng/L (3.0-53)
[2024-12-11] MEDS: ASPIRIN 325MG TABLET PO ONE (01:15)
[2024-12-11] MEDS: FUROSEMIDE 40MG TABLET PO ONE (02:49)
[2024-12-11] MEDS ORDERED: FURO-151 MT (04:27)
[2024-12-11 05:18] VITALS: BP 125/84; PULSE 92; RESP 15; TEMP 36.8; O2SAT 96
== END 2024-12-11 05:38 | disposition home or self-care (01) ==
LOC: ER 23:07 → CMPBEDREQ 12-12 07:22
DX: I11.0 Hypertensive heart disease with heart failure (principal); I50.9 Heart failure, unspecified; J45.909 Unspecified asthma, uncomplicated; Z79.82 Long term (current) use of aspirin; Z79.899 Other long term (current) drug therapy
CPT/HCPCS: 36415; 71045; 80048; 83880; 84484; 85025; 99285